=== PATIENT | female | born 1955 | race Caucasian/White ===

== ENCOUNTER 2024-05-05 09:45 | Outpatient (CLI) | payer OTHER | END 2024-05-05 09:46 | disposition home or self-care (01) | LOC: BICMAMMO 09:45 | PROVIDERS: ATTEND Internal Medicine | DX: Z12.31 Encounter for screening mammogram for malignant neoplasm of breast (principal); Z13.820 Encounter for screening for osteoporosis | CPT/HCPCS: 77063; 77067; 77080 ==

== ENCOUNTER 2025-01-01 09:08 | Outpatient (CLI) | payer MEDICARE, OTHER | END 2025-01-01 09:09 | disposition home or self-care (01) | LOC: BICRAD 09:08 | PROVIDERS: ATTEND Internal Medicine | DX: Z01.818 Encounter for other preprocedural examination (principal); I77.810 Thoracic aortic ectasia | CPT/HCPCS: 71046 ==

== ENCOUNTER 2025-07-29 08:58 | Outpatient (CLI) | payer MEDICARE, OTHER | END 2025-07-29 08:59 | disposition home or self-care (01) | LOC: BICMAMMO 08:58 | PROVIDERS: ATTEND Internal Medicine | DX: Z12.31 Encounter for screening mammogram for malignant neoplasm of breast (principal); Z80.3 Family history of malignant neoplasm of breast | CPT/HCPCS: 77063; 77067 ==